=== PATIENT | male | born 2000 | race Caucasian/White ===

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

== ENCOUNTER 2021-09-18 11:41 | Outpatient (CLI) | payer OTHER, SELFPAY ==
[2021-09-18 13:28] LABS: SARS-CoV-2 RNA PCR Negative (Negative)
== END 2021-09-18 11:42 | disposition home or self-care (01) ==
LOC: CHSLAB 11:44
PROVIDERS: PCP Family Medicine; Visit Provider Nurse Practitioner Family
DX: J06.9 Acute upper respiratory infection, unspecified (principal); J02.9 Acute pharyngitis, unspecified; Z20.822 Contact with and (suspected) exposure to COVID-19
CPT/HCPCS: 87081; 87880; C9803; U0003; U0005

== ENCOUNTER 2024-05-23 20:23 | Emergency (ER) | payer OTHER, SELFPAY ==
[2024-05-23 20:25] VITALS: BP 145/87; PULSE 84; RESP 18; TEMP 36.4; O2SAT 98
--- NOTE | 2024-05-23 20:26 | ED.WOUNDLAC ---
HPI - Wound/Laceration General Chief Complaint: Skin/Abscess/Foreign Body Stated Complaint: spider bite Time Seen by Provider: 05/23/24 20:26 Source: patient and family Mode of arrival: ambulatory Limitations: no limitations History of Present Illness HPI narrative: this is a 23-year-old male that has an insect bite to his left lower leg the a medial calf area with a central lesion with area of erythema approximately 3cm in diameter it is red and warm and mildly tender with no drainage no fever chills. The bite occurred on Saturday and progressively worsened. Onset (ago): day(s) Location: other Extremity Location: Left: lower leg ( insect bite with a surrounding area of erythema) Place: home Context: accidental Related Data Allergies Allergy/AdvReac Type Severity Reaction Status Date / Time No Known Allergies Allergy Verified 12/09/19 22:13 Review of Systems Review of Systems: All systems reviewed & are unremarkable except as noted in HPI and below PMFSH Past Medical History Medical History (Updated 05/23/24 @ 20:30 by Guilherme Sosa MD) Bipolar 1 disorder, depressed Surgical History Surgical History No pertinent past surgical history Social History Social History Smoking status: Current some day smoker Alcohol intake: current Alcohol use details: occasional Substance use: never Living arrangements: with family Exam Const: General: healthy appearing, no acute distress and alert Nutritional Appearance: well nourished Orientation/consciousness: patient oriented x3 Limitations: no limitations Neck: Neck: normal visual inspection Chest: Chest palpation & inspection: normal inspection of the chest Resp: Effort & Inspection: normal respiratory effort Auscultation: clear to auscultation bilaterally Cardio: Rate: regular rate Rhythm: regular rhythm GI: GI Palp: Yes Soft to palpation Auscultation: normal bowel sounds Skin: Wounds: wounds noted Other: Central lesion left lower medial calf area with a surrounding area of erythema and tenderness Neuro: General: patient oriented x3 and moves all extremities Course Course Emergency Course: patient was updated with his tetanus with Adacel and dose of ceftriaxone 1g IM was administered. Vital Signs Vital signs: Vital Signs Temperature 36.4 C L 05/23/24 20:25 Pulse Rate 84 05/23/24 20:25 Respiratory Rate 18 05/23/24 20:25 Blood Pressure 150/104 H 05/23/24 20:25 Pulse Oximetry 98 05/23/24 20:25 Oxygen Delivery Room Air 05/23/24 20:25 Temperature 36.4 C L 05/23/24 20:25 Pulse Rate 84 05/23/24 20:25 Respiratory Rate 18 05/23/24 20:25 Blood Pressure 150/104 H 05/23/24 20:25 Pulse Oximetry 98 05/23/24 20:25 Oxygen Delivery Room Air 05/23/24 20:25 Critical Care Time Critical Care Time Critical Care Time: No Discharge Plan Discharge Clinical Impression: Insect bite, Cellulitis Patient Disposition: Home, Self-Care Condition: Stable Instructions: Antibiotic Form, Cellulitis (ED), Insect Bite or Sting (ED) Additional Instructions: take medicine as prescribed and follow up with primary if symptoms persist or worsen. Prescriptions: New amoxicillin-pot clavulanate [Augmentin] 500-125 mg tablet 1 tablet PO TID 10 Days Qty: 30 0RF No Action acetaminophen-codeine 300-30 mg tablet 1 tablet PO Q6H PRN (Reason: pain) Qty: 7 0RF Follow-up/Referrals: João Qiu MD [Primary Care Provider] - Time of Disposition: 20:31
[2024-05-23] MEDS: TETANUS,DIPHTHERIA,AC PERTUSSIS ADULT 0.5 ML (ADACEL) IM (20:38)
[2024-05-23] MEDS: cefTRIAXone 1 GM, LIDOCAINE HCL 1% LOCAL INJ 2.1 ML IM (20:39)
[2024-05-23] MEDS: IBUPROFEN 600 MG TABLET PO (20:58)
== END 2024-05-23 21:33 | disposition home or self-care (01) ==
LOC: CHSED 20:36
PROVIDERS: Emergency Provider Emergency Medicine; PCP Family Medicine
DX: S80.862A Insect bite (nonvenomous), left lower leg, initial encounter (principal); L03.116 Cellulitis of left lower limb; F17.200 Nicotine dependence, unspecified, uncomplicated; W57.XXXA Bitten or stung by nonvenomous insect and other nonvenomous arthropods, initial encounter; Z23 Encounter for immunization
CPT/HCPCS: 90471; 90715; 96372; 99283; A9270; J0696